=== PATIENT | male | born 1995 | race Caucasian/White ===

== ENCOUNTER 2018-09-06 09:28 | Emergency (ER) | payer SELFPAY ==
[2018-09-06 10:01] LABS: Absolute Lymphocytes (CBC) 2.7 K/uL (0.7-4.9); Absolute Monocytes 0.9 K/uL (0.1-1.3); Absolute Neutrophil 11.2 K/uL (1.8-8.0); Basophils % 0.3 % (0-1.3); Eosinophils % 1.1 % (0-4.4); Hematocrit 41.2 % (39.6-49.0); Lymphocytes % 17.8 % (15.3-44.8); MCV 71.4 fL (80-100); MPV 7.7 fL (7.6-11.3); Monocytes % 6.3 % (3.3-12.3); RBC Red Blood Cell Count 5.78 M/uL (4.33-5.43)
[2018-09-06] MEDS ORDERED: ONDANSETRON 4 MG/2 ML VIAL ONE (10:01)
[2018-09-06] MEDS ORDERED: MORPHINE 4 MG/ML SYR ONE (10:01)
[2018-09-06] MEDS ORDERED: NA CHLORIDE 0.9% 1,000 ML ONE (10:01)
--- NOTE | 2018-09-06 10:07 | RAD REPORT ---
EXAM DESCRIPTION: CT - Stone Protocol - 09/06/2018 9:55 am CLINICAL HISTORY: Left abdominal pain, left testicular pain, dysuria COMPARISON: None. TECHNIQUE: Axial 5 mm thick images were obtained without oral or IV contrast. The [id number] span s the entirety of the system partially obscuring uppermost abdomen and lung bases. All CT scans are performed using dose optimization technique as appropriate and may include automated exposure control or mA/KV adjustment according to patient size. FINDINGS: Minimal left-sided hydronephrosis is present secondary to a 1-2 mm distal ureteral stone i mmediately proximal to the left UVJ. No other obstructing or nonobstructing calculi on the left. Punc col[place] 1 millimeter sized calyx calculi noted on the right. No suspicious renal masses. Isodense masses and pyelonephritis are not excluded on a stone protocol CT scan. Urinary bladder is fully contracted limiting detail. No adrenal abnormalities. Imaged portions of the liver, spleen and pancreas show no suspicious findings on non-contrast imaging . No gallbladder or biliary tree abnormality identified. Gallstones can be occult on CT imaging. No suspicious bowel findings. No hernia, mass or bulky lymphadenopathy noted. No free air, free fluid or inflammatory stranding. No significant bony abnormality. IMPRESSION: Minimal left-sided hydronephrosis secondary to a 1-2 mm calcification left ureter immedi ately proximal to the UVJ. Isodense masses and pyelonephritis are not excluded on stone protocol technique.
[2018-09-06 10:16] LABS: BUN Blood Urea Nitrogen 10 mg/dL (7-18); Bicarbonate 21 mmol/L (21-32); Glucose Level 149 mg/dL (74-106); Potassium 3.8 mmol/L (3.5-5.1); Sodium Level 138 mmol/L (136-145)
[2018-09-06] MEDS ORDERED: KETOROLAC 30 MG/ML INJ ONE (10:52)
[2018-09-06] MEDS ORDERED: TAMSULOSIN 0.4 MG SR CAP ONE (10:53)
--- NOTE | 2018-09-06 11:23 | RAD REPORT ---
EXAM DESCRIPTION: US - Scrotum Testicles - 09/06/2018 10:38 am CLINICAL HISTORY: Testicular pain. Preliminary findings provided at the time of the study. COMPARISON: None. FINDINGS: Bilateral testicular tissue is homogeneous with no focal mass lesion identifiable. Doppler evaluation identifies blood flow within both testicles. Blood flow is less pronounced on the left ; however, this is believed to be more technical in nature than reflect a true asymmetry of blood flow pattern. No hyperemia of either testicle. Each epididymis is normal in size without hyperemia. No greg icocele, hydrocele or other extratesticular abnormality. IMPRESSION: No testicular mass or torsion findings. No suspicious findings noted.
--- NOTE | 2018-09-06 13:01 | ER ---
Nurse's Notes [facility] Name: Helder Snyder Age: 23 yrs Sex: Male : 1995 Arrival Date: 09/06/2018 Time: 09:32 Bed 8 Private MD: None, None Diagnosis: Calculus of kidney and ureter Presentation: 09/06 09:41 Presenting complaint: Patient states: Pain in L testicle, L abdomen and L lower back ph that began this morning, also reports difficulty urinating and nausea, denies V/D. Transition of care: patient was not received from another setting of care. Onset of symptoms was September 06, 2018. Risk Assessment: Do you want to hurt yourself or someone else? Patient reports no desire to harm self or others. Initial Sepsis Screen: Does the patient meet any 2 criteria? No. Patient's initial sepsis screen is negative. Does the patient have a suspected source of infection? No. Patient's initial sepsis screen is negative. Care prior to arrival: None. 09:41 Method Of Arrival: Ambulatory ph 09:41 Acuity: MARQUISE 3 ph Historical: - Allergies: 09:43 No Known Allergies; ph - Home Meds: 09:43 None [Active]; ph - PMHx: 09:43 None; ph - PSHx: 09:43 None; ph - Immunization history:: Adult Immunizations unknown. - Social history:: Smoking status: Patient/guardian denies using tobacco. - Ebola Screening: : No symptoms or risks identified at this time. Screenin:43 Abuse screen: Denies threats or abuse. Denies injuries from another. Nutritional ph screening: No deficits noted. Tuberculosis screening: No symptoms or risk factors identified. Fall Risk None identified. Assessment: 09:45 General: Appears in no apparent distress. uncomfortable, well groomed, well developed, sg well nourished, Behavior is calm, cooperative, appropriate for age. Pain: Complains of pain in left lower quadrant, left testicle and right testicle Quality of pain is described as aching, sharp, stabbing. Neuro: No deficits noted. Cardiovascular: Patient's skin is warm and dry. Chest pain is denied. Respiratory: Airway is patent Respiratory effort is even, unlabored, Respiratory pattern is regular, symmetrical. GI: Abdomen is round non-distended, Bowel sounds present X 4 quads. Abd is soft X 4 quads Abdomen is tender to palpation in left lower quadrant. : No deficits noted. : Reports inability to void, since this morning pain in right in left testicle, Denies burning with urination, discharge, incontinence, urinary frequency, urgency. EENT: No deficits noted. Derm: Skin is intact, is healthy with good turgor, Skin is dry, Skin is pale, Skin temperature is cool. Musculoskeletal: No signs and/or symptoms reported regarding the musculoskeletal system. Vital Signs: 09:42 BP 118 / 60; Pulse 67; Resp 18; Temp 98.1; Pulse Ox 98% on R/A; Weight 120.2 kg; Height ph 5 ft. 7 in. (170.18 cm); Pain 9/10; 09:42 Body Mass Index 41.50 (120.20 kg, 170.18 cm) ph ED Course: 09:32 Patient arrived in ED. sb2 09:32 None, None is Private Physician. sb2 09:33 [facility] kb 09:33 Flaquito Tavarez MD is Attending Physician. kb 09:39 Dianne Salvador, LUIS is Primary Nurse. sv 09:40 Initial lab(s) drawn, by me, sent to lab. Inserted saline lock: 20 gauge in right sg antecubital area, using aseptic technique. Blood collected. 09:42 Triage completed. ph 09:43 Arm band placed on. ph 09:48 Manish Alexis, LUIS is Primary Nurse. sv 09:[address] via wheelchair. sj 09:55 CT Stone Protocol In Process Unspecified. EDMS 10:26 Ultrasound completed. aa4 10:32 US Scrotum Testicles In Process Unspecified. EDMS 12:45 Urine collected: clean catch specimen, geoffrey colored. sg Administered Medications: 10:02 Drug: morphine 4 mg Route: IVP; Site: right antecubital; sg 10:02 Drug: Zofran 4 mg Route: IVP; Site: right antecubital; sg 10:46 Drug: TORadol 30 mg Route: IVP; Site: right antecubital; sg 11:29 Follow up: Response: No adverse reaction; Pain is decreased sg 10:56 Drug: Flomax 0.4 mg Route: PO; sg 11:29 Follow up: Response: No adverse reaction sg 10:56 Drug: Magnesium Sulfate 1 grams Route: IVPB; Infused Over: 1 hrs; Site: right sg antecubital; 10:57 Drug: NS 0.9% 1000 ml Route: IV; Rate: 1000 ml; Site: right antecubital; sg Output: 12:45 Urine: 300ml (Voided); Total: 300ml. sg Outcome: 13:01 Discharge ordered by MD. lopez 13:05 Patient left the ED. sg Signatures: Dispatcher [employer] EDMS Chelsie Manjarrez, FRANK-C MILLER HEAD-Dianne Vazquez RN RN Manish Morales RN RN Gissell Smith Amanda aa4 Mila Marroquin RN RN Coreen Gandhi sb2 Corrections: (The following items were deleted from the chart) 11:29 11:29 Response: No adverse reaction; Nausea is decreased sg sg
--- NOTE | 2018-09-06 13:01 | EDPHYS ---
Physician Documentation [facility] Name: Helder Snyder Age: 23 yrs Sex: Male : 1995 Arrival Date: 09/06/2018 Time: 09:32 Bed 8 Private MD: None, None ED Physician Flaquito Tavarez HPI: 09/06 09:49 This 23 yrs old Male presents to ER via Ambulatory with complaints of Abdominal Pain, kb Back Pain. 09:49 The patient presents with flank pain, of the left flank, scrotal pain, of the left kb side, urinary symptoms, unable to void. Onset: The symptoms/episode began/occurred this morning. Modifying factors: The symptoms are alleviated by nothing, the symptoms are aggravated by nothing. Associated signs and symptoms: Pertinent positives: abdominal pain, Pertinent negatives: constipation, diarrhea, dysuria, fever, hematuria, nausea, vomiting. Severity of symptoms: At their worst the symptoms were moderate, severe, in the emergency department the symptoms are unchanged. The patient has not experienced similar symptoms in the past. The patient has not recently seen a physician. 09:50 Pt reports pain that started in left testicle and now radiates to left abd and flank. kb Reports unable to urinate . Historical: - Allergies: 09:43 No Known Allergies; ph - Home Meds: 09:43 None [Active]; ph - PMHx: 09:43 None; ph - PSHx: 09:43 None; ph - Immunization history:: Adult Immunizations unknown. - Social history:: Smoking status: Patient/guardian denies using tobacco. - Ebola Screening: : No symptoms or risks identified at this time. ROS: 09:47 Constitutional: Negative for fever, chills, and weight loss, Cardiovascular: Negative kb for chest pain, palpitations, and edema, Respiratory: Negative for shortness of breath, cough, wheezing, and pleuritic chest pain, MS/Extremity: Negative for injury and deformity, Skin: Negative for injury, rash, and discoloration, Neuro: Negative for headache, weakness, numbness, tingling, and seizure. 09:47 Abdomen/GI: Positive for abdominal pain, Negative for nausea, vomiting, and diarrhea, constipation, abdominal cramps, abdominal distension, anorexia. 09:47 Back: Positive for flank pain, on the left. 09:47 : Positive for flank pain, difficulty urinating, testicular pain Exam: 09:46 Constitutional: This is a well developed, well nourished patient who is awake, alert, kb and in no acute distress. Head/Face: Normocephalic, atraumatic. Neck: Trachea midline, no thyromegaly or masses palpated, and no cervical lymphadenopathy. Supple, full range of motion without nuchal rigidity, or vertebral point tenderness. No Meningismus. Chest/axilla: Normal chest wall appearance and motion. Nontender with no deformity. No lesions are appreciated. Cardiovascular: Regular rate and rhythm with a normal S1 and S2. No gallops, murmurs, or rubs. Normal PMI, no JVD. No pulse deficits. Respiratory: Lungs have equal breath sounds bilaterally, clear to auscultation and percussion. No rales, rhonchi or wheezes noted. No increased work of breathing, no retractions or nasal flaring. Skin: Warm, dry with normal turgor. Normal color with no rashes, no lesions, and no evidence of cellulitis. MS/ Extremity: Pulses equal, no cyanosis. Neurovascular intact. Full, normal range of motion. Neuro: Awake and alert, GCS 15, oriented to person, place, time, and situation. Cranial nerves II-XII grossly intact. Motor strength 5/5 in all extremities. Sensory grossly intact. Cerebellar exam normal. Normal gait. 09:46 Abdomen/GI: Inspection: obese Bowel sounds: normal, in all quadrants, Palpation: soft, in all quadrants, mild abdominal tenderness, in the left lower quadrant. 09:46 Back: CVA tenderness, that is mild, is noted on the left. Vital Signs: 09:42 BP 118 / 60; Pulse 67; Resp 18; Temp 98.1; Pulse Ox 98% on R/A; Weight 120.2 kg; Height ph 5 ft. 7 in. (170.18 cm); Pain 9/10; 09:42 Body Mass Index 41.50 (120.20 kg, 170.18 cm) ph MDM: 09:40 Patient medically screened. kb 09:46 Data reviewed: vital signs, nurses notes. Data interpreted: Pulse oximetry: on room air kb is 98 %. Interpretation: normal. 12:59 Counseling: I had a detailed discussion with the patient and/or guardian regarding: the kb historical points, exam findings, and any diagnostic results supporting the discharge/admit diagnosis, lab results, radiology results, the need for outpatient follow up, a urologist, to return to the emergency department if symptoms worsen or persist or if there are any questions or concerns that arise at home. 09/06 09:42 Order name: CBC with Diff; Complete Time: 10:24 kb 09/06 09:42 Order name: Basic Metabolic Panel; Complete Time: 10:24 kb 09/06 09:42 Order name: CT Stone Protocol; Complete Time: 10:13 kb 09/06 12:44 Order name: Urine Microscopic Only sg 09/06 12:44 Order name: Urine Culture sg 09/06 12:47 Order name: Urine Dipstick--Ancillary (enter results) eb 09/06 09:42 Order name: IV Start; Complete Time: 09:53 kb 09/06 09:49 Order name: US Scrotum Testicles; Complete Time: 11:25 kb 09/06 09:42 Order name: Urine Dipstick-Ancillary (obtain specimen); Complete Time: 12:44 kb Administered Medications: 10:02 Drug: morphine 4 mg Route: IVP; Site: right antecubital; sg 10:02 Drug: Zofran 4 mg Route: IVP; Site: right antecubital; sg 10:46 Drug: TORadol 30 mg Route: IVP; Site: right antecubital; sg 11:29 Follow up: Response: No adverse reaction; Pain is decreased sg 10:56 Drug: Flomax 0.4 mg Route: PO; sg 11:29 Follow up: Response: No adverse reaction sg 10:56 Drug: Magnesium Sulfate 1 grams Route: IVPB; Infused Over: 1 hrs; Site: right sg antecubital; 10:57 Drug: NS 0.9% 1000 ml Route: IV; Rate: 1000 ml; Site: right antecubital; sg Disposition: 15:43 Co-signature as Attending Physician, Flaquito Tavarez MD. rn Disposition: 09/06/18 13:01 Discharged to Home. Impression: Calculus of kidney and ureter. - Condition is Stable. - Discharge Instructions: Kidney Stones, [id number], Dietary Guidelines to Help Prevent Kidney Stones. - Prescriptions for Augmentin 875- 125 mg Oral Tablet - take 1 tablet by ORAL route every 12 hours for 10 days; 20 tablet. Tylenol- Codeine #3 300-30 mg Oral Tablet - take 1 tablet by ORAL route every 4 hours As needed; 15 tablet. Zofran 4 mg Oral Tablet - take 1 tablet by ORAL route every 6 hours As needed; 20 tablet. Flomax 0.4 mg Oral Capsule, Sust. Release 24 hr - take 1 capsule by ORAL route once daily 1/2 hour following the same meal each day; 10 capsule. Diclofenac Sodium 75 mg Oral Tablet, Delayed Release (E.C.) - take 1 tablet by ORAL route 2 times per day As needed; 30 tablet. - Medication Reconciliation Form, Thank You Letter, Antibiotic Education, Prescription Opioid Use, Work release form form. - Follow up: Emergency Department; When: As needed; Reason: Worsening of condition. Follow up: Private Physician; When: 2 - 3 days; Reason: Recheck today's complaints, Continuance of care, Re-evaluation by your physician. Signatures: Dispatcher [employer] EDMS Chelsie Manjarrez, SARABJIT MARIE-Manish Velazquez RN RN sg Flaquito Tavarez MD MD rn Mila Marroquin RN RN ph Corrections: (The following items were deleted from the chart) 13:05 13:01 09/06/2018 13:01 Discharged to Home. Impression: Calculus of kidney and ureter. sg Condition is Stable. Forms are Medication Reconciliation Form, Thank You Letter, Antibiotic Education, Prescription Opioid Use. Follow up: Emergency Department; When: As needed; Reason: Worsening of condition. Follow up: Private Physician; When: 2 - 3 days; Reason: Recheck today's complaints, Continuance of care, Re-evaluation by your physician. kb
[2018-09-06 13:21] LABS: Urine Amorphous Sediment 2+ /HPF (NONE SEEN); Urine Bacteria <20 /HPF (NONE SEEN); Urine Culture Reflex Order NOT NEEDED
[2018-09-06 15:07] LABS: Urine Blood 3+ (NEG); Urine Glucose NEGATIVE (NEG); Urine Protein TRACE (NEG); Urine Specific Gravity 1.025 (1.005-1.030); Urine pH 5.5 (5.0-7.0)
== END 2018-09-06 13:05 | disposition home or self-care (01) ==
LOC: ER 09:28
DX: N20.2 Calculus of kidney with calculus of ureter (principal)
CPT/HCPCS: 36415; 74176; 76377; 76870; 80048; 81003; 81015; 85025; 87086; 87088; 96374; 96375; 99284; J2405; J7030